=== PATIENT | female | born 1990 | race Caucasian/White ===

== ENCOUNTER → 2016-04-07 | Outpatient (CLI) | payer MEDICAID ==
[~2016-04-07] MED LIST: FERROUS SULFAT325 M1 PO; IRON TABLETS325 MG PO; MOTRIN 400MG.400 MG PO; NOMEDS XX; PERCOCET 650 MG1 TAB PO; PRENATAL PLUS1 TA1 PO
[2016-04-07 09:40] LABS: URINE BILIRUBIN - DIPSTICK NEGATIVE (NEG); URINE BLOOD NEGATIVE (NEG)
[2016-04-07 09:41] LABS: HEMOGLOBIN 13.5 g/dL (12.2-16.2); LYMPH # 2.1 K/mm3 (0.7-4.5); LYMPH % 41.1 % (10-50.0)
== END ==
LOC: LAB 09:27
PROVIDERS: Obstetrics & Gynecology
DX: N81.6 Rectocele (principal); N81.10 Cystocele, unspecified; N81.9 Female genital prolapse, unspecified; Z01.818 Encounter for other preprocedural examination